=== PATIENT | female | born 1955 | race Caucasian/White ===

== ENCOUNTER 2016-08-31 11:50 | Day surgery (SDC) | payer OTHER ==
[~2016-08-31] VITALS: Ht 157.5 cm; Wt 61.0 kg
--- NOTE | 2016-08-31 07:08 | PCM.HPANE ---
Patient Data Surgeon Admitting Provider: Attending Provider:Eli Rodas MD Primary Care Physician:Sonny Pritchard MD Other Provider:Alvarez Gomez Anesthesia Reason for Visit Noninfective Gastroenteritis Ht/WT & BMI Body Mass Index Allergies Coded Allergies: gabapentin (Verified Allergy, Unknown, 08/31/16) Medications Reported Medications [place]-3 Fatty Acids (Fish Oil)300 Mg Lughzzx162 Mg PO DAILY 08/31/16 Cholecalciferol (Vitamin D3) (Vitamin D3)400 Unit [id number] Unit PO DAILYWD 08/31/16 Quetiapine Fumarate (Seroquel)300 Mg Ikvzux583 Mg PO BID Ref 0 08/31/16 Temazepam 30 Mg Cap30 Mg PO HS PRN For Insomnia 30 Days Ref 0 08/30/16 [place] Carbonate 300 Mg Oihjsr187 Mg PO BID 08/30/16 Discontinued Reported Medications Tramadol 50 Mg Vjyrxf97 Mg PO Q4H PRN For Pain Ref 0 08/30/16 Quetiapine Fumarate (Seroquel)100 Mg Twvgcr417 Mg PO HS Ref 0 01/07/16 Quetiapine Fumarate (Seroquel)100 Mg Bcrpdw383 Mg PO ONCE Ref 0 01/07/16 History Smoking Status: Current Every Day Smoker Stop/Bang RAMON Risk Assessment: Low Risk, <3 Yes Risk Assessment Category Category 1A: Patient has history of documented sleep apnea, and HAS NOT received any narcotic, sedative or anesthesia administration during this stay. Category 1B: Patient has history of documented sleep apnea, and HAS received any narcotic , sedative or anesthesia administration during this stay Category 2: Patient has SUSPECTED Obstructive Sleep Apnea, and HAS received any narcotic , sedative or anesthesia administration during this stay. Category 3: Patient has SUSPECTED Obstructive Sleep Apnea and HAS NOT received narcotic, sedative or anesthesia administration during this stay. Category 4: Outpatient in Procedural Areas with known sleep apnea or who screen positive for High Risk via the STOP/BANG questionnaire. Exam Exam General Appearance: Alert, Oriented X3, Cooperative, No Acute Distress HEENT/AIRWAY: MP 2 Lungs: Clear to Auscultation, Normal Air Movement Heart: Exam Unremarkable, Regular Rate/Rhythm, No Murmurs/Rubs/Gallops Plan Impression Patient chart reviewed, patient interviewed and anesthestic plan with risks, benefits, and alternatives discussed, and informed consent obtained. ASA Physical Status: ASA2 Mod Systemic Disease Anesthetic Plan: MAC Bene/Risks/Altern/Consents: Yes HP Complete Prior to Induction: Yes Aurea Billingsley MD Aug 31, 2016 07:08
[~2016-08-31 11:50] MED LIST: LITH300T2 PO; RES30 PO; TRAM50TA2 PO
[2016-08-31] MEDS ORDERED: Propofol 10,000 mCg/mL 20 mL Inj ONE (11:51)
[2016-08-31] MEDS ORDERED: fentaNYL-PF 50 mCg/mL 2 mL Inj ONE (11:51)
[2016-08-31 12:41] VITALS: BP 125/87; PULSE 87; RESP 16; O2SAT 94
[2016-08-31] MEDS ORDERED: CHOL400T3 PO (12:41)
[2016-08-31] MEDS ORDERED: QUET300T PO (12:41)
[2016-08-31] MEDS ORDERED: OMEG300C3 PO (12:41)
[2016-08-31] MEDS: Lactated Ringer's 1,000 ML IV SCH ×2 (12:48→14:18)
[2016-08-31] MEDS ORDERED: Lactated Ringer's 1,000 ML IV SCH (14:31)
--- NOTE | 2016-08-31 14:32 | PCM.ANEP1 ---
Post Anesthesia Phase 1 PACU Phase 1 Assessment Vital Signs Vital Signs Date Time Temp Pulse Resp B/P Pulse Ox O2 Delivery O2 Flow Rate FiO2 08/31/16 12:41 36.6 87 16 125/87 94 Room Air Anesthetic Administered: MAC Level of Alertness: Awake, talking CHAN's with Equal Strength: Yes Pain: No Oxygen Delivery: Nasal Cannula Lungs: Clear to Auscultation, Normal Air Movement Aurea Billingsley MD Aug 31, 2016 14:32
--- NOTE | 2016-08-31 14:32 | PCM.ANEP2 ---
Post Anesthesia Evaluation ASA/CMS Post Anesthesia VS in Patient's Normal Range?: Yes Resp Stable; Airway Patent?: Yes CV Function & Hydration Stable: Yes Mental Status Recovered?: Yes Pain control Satisfactory?: Yes N/V Control Satisfactory?: Yes Aurea Billingsley MD Aug 31, 2016 14:32
[2016-08-31 14:34] VITALS: BP 137/89; PULSE 74; RESP 16; O2SAT 94
[2016-08-31] MEDS ORDERED: MetoCLOpramide 5 mg/mL 2 mL Inj IVPUSH PRN (14:35)
[2016-08-31] MEDS ORDERED: Ondansetron 2 mg/mL 2 mL Inj IVPUSH PRN (14:35)
[2016-08-31 14:44] VITALS: BP 130/84; PULSE 79; RESP 16; O2SAT 96
[2016-08-31 14:54] VITALS: BP 144/92; PULSE 76; RESP 16; O2SAT 95
--- NOTE | 2016-08-31 15:23 | ENDO ---
[address] [address] ENDOSCOPY PROCEDURE PATIENT: PHIL LY : 1955 MR#: [id number] ADMIT: 08/31/2016 JOB ID: [id number] DATE OF SERVICE: 08/31/2016 FIRST PROCEDURE PERFORMED: Esophagogastroduodenoscopy. INDICATION: Suspected celiac disease and diarrhea. ASA CLASSIFICATION, MALLAMPATI SCORE AND MEDICATIONS: Please see anesthesia report for details regarding ASA classification, Mallampati score and medications. INSTRUMENT USED: [id number]. PROCEDURE DETAILS: After informed consent was obtained, the patient was brought into the GI suite, where she was placed on oxygen via nasal cannula and monitored with continuous pulse oximeter, telemetry, and blood pressure monitoring. A time-out was performed. Then, she was placed in the left lateral decubitus position, and medications were administered for sedation. A bite block was placed. A standard EGD scope was inserted through the bite block and advanced under direct visualization to the second portion of the duodenum without difficulty. FINDINGS: 1. Normal appearing duodenal bulb, first and second portions. Multiple random biopsies were obtained. 2. Normal appearing pylorus. In the antrum there were six clean-based ulcers that measured approximately 2-3 mm each. Multiple biopsies were obtained. The surrounding mucosa was erythematous. 3. Erythema was noted in the gastric body. Multiple random biopsies were obtained. Retroflexed views in the gastric body revealed normal appearing cardia and fundus. 4. The diaphragmatic hiatus was at approximately 40 cm, and the GE junction was at 38 cm. The GE junction appeared normal. 5. Normal appearing esophagus. IMPRESSION: 1. Multiple antral ulcers. 2. Gastritis. 3. Small hiatal hernia. RECOMMENDATIONS: PPI daily and proceed to colonoscopy. COMPLICATIONS: None. ESTIMATED BLOOD LOSS: Less than 5 mL. SECOND PROCEDURE PERFORMED: Colonoscopy. INDICATION: Diarrhea. ASA CLASSIFICATION, MALLAMPATI SCORE AND MEDICATIONS: Please see above for ASA classification, Mallampati score, and medications. INSTRUMENT USED: [id number]. PREPARATION QUALITY: Good. PROCEDURE DETAILS: After completion of the EGD exam, a digital rectal exam was performed which was unremarkable. The colonoscope was then inserted into the rectum and advanced under direct visualization to the cecum, which was identified by the presence of the ileocecal valve and appendiceal orifice. Once the cecum was reached, the terminal ileum was intubated, which was identified by the presence of the ileocecal valve and villous appearing mucosa of the terminal ileum. Once the terminal ileum was intubated, the colonoscope was then withdrawn back into the rectum, as the mucosa and lumen were examined. In the rectum, retroflexion was performed. Following retroflexion, remaining air in the rectum was suctioned, and procedure was completed. FINDINGS: 1. The terminal ileum appeared to be mildly atrophic. Multiple random biopsies were obtained. 2. The entire colon had appearance consistent with neovascularization. Appearance was suggestive of collagenous or lymphocytic colitis. Multiple random biopsies were obtained throughout the entire colon. 3. In the distal rectum, there were two diminutive polyps that were removed with cold biopsy forceps. 4. Scattered diverticula were seen throughout the left side of the colon. IMPRESSION: 1. Atrophic appearing terminal ileum. 2. Neovascularization of the entire colon suggestive of collagenous colitis versus lymphocytic colitis. 3. Two rectal polyps. 4. Left-sided diverticulosis. RECOMMENDATIONS: 1. Await biopsy results. 2. Fiber-rich diet. 3. Follow up in GI clinic. COMPLICATIONS: None. ESTIMATED BLOOD LOSS: Less than 5 mL.
--- NOTE | 2016-09-04 14:06 | PATH ---
SURGICAL PATHOLOGY Attending Physician:Martha Doe CASE STATUS: Signed Out PATIENT NAME: PHIL LY PID: [id number] : 1955 DATE COLLECTED:08/31/2016 00:00 SPECIMEN: 1: Duodenum, Biopsy 2: Stomach, Antrum, Biopsy 3: Gastric, Biopsy 4: Colon, Biopsy 5: Ileum, Biopsy 6: Rectum, Biopsy CLINICAL HISTORY: 1). DUODENAL BIOPSY 2). GASTRIC ANTRUM BIOPSY 3). GASTRIC BODY BIOPSY 4). RANDOM COLON BIOPSY 5). TERMINAL ILEUM BIOPSY 6). RECTAL POLYP X2 FINAL DIAGNOSIS: 1.DUODENUM, BIOPSY: NO DIAGNOSTIC ABNORMALITY. Negative for intraepithelial lymphocytosis, villous blunting, or other features of celiac sprue. Negative for Giardia organisms, dysplasia and malignancy. 2.GASTRIC ANTRUM, BIOPSY: GASTRIC ANTRUM WITH MILD CHRONIC GASTRITIS. Negative for Helicobacter organisms. Negative for intestinal metaplasia. No evidence of dysplasia or malignancy. 3.GASTRIC BODY, BIOPSY: GASTRIC CORPUS WITH MILD CHRONIC GASTRITIS. Negative for Helicobacter organisms. Negative for intestinal metaplasia. No evidence of dysplasia or malignancy. 4.COLON, RANDOM BIOPSIES: COLLAGENOUS COLITIS. No evidence of malignancy or dysplasia. 5.TERMINAL ILEUM, BIOPSY: NORMAL SMALL BOWEL MUCOSA WITH BENIGN LYMPHOID NODULES. No significant inflammation identified. No evidence of malignancy or dysplasia. 6.RECTAL POLYPS: HYPERPLASTIC POLYPS (TWO). COLLAGENOUS COLITIS. ICD10 CODE K52.89 GROSS DESCRIPTION: Received are six formalin-filled containers, each labeled with the patient' s name. 1. Received in formalin, labeled with the patient' s name and "duodenal biopsies", are multiple fragments of mendes, soft tissue ranging in size from 0.1 x 0.1 x 0.1 cm to 0.2 x 0.1 x 0.1 cm. All fragments are totally submitted in cassette 1A. 2. Received in formalin, labeled with the patient' s name and "gastric antrum biopsies", are four fragments of mendes, soft tissue ranging in size from 0.1 x 0.1 x 0.1 cm to 0.2 x 0.2 x 0.2 cm. All fragments are totally submitted in cassette 2A. 3. Received in formalin, labeled with the patient' s name and "gastric body", are four fragments of mendes, soft tissue ranging in size from 0.1 x 0.1 x 0.1 cm to 0.3 x 0.2 x 0.1 cm. All fragments are totally submitted in cassette 3A. 4. Received in formalin, labeled with the patient' s name and "random colon biopsies", are multiple fragments of mendes, soft tissue ranging in size from 0.1 x 0.1 x 0.1 cm to 0.2 x 0.2 x 0.1 cm. All fragments are totally submitted in cassette 4A. 5. Received in formalin, labeled with the patient' s name and "terminal ileum biopsy", is one fragment of mendes, soft tissue measuring 0.3 x 0.2 x 0.1 cm. The fragment is totally submitted in cassette 5A. 6. Received in formalin, labeled with the patient' s name and "rectal polyps", are three fragments of mendes, soft tissue ranging in size from 0.1 x 0.1 x 0.1 cm to 0.2 x 0.2 x 0.1 cm. All fragments are totally submitted in cassette 6A. ([id number]) MICRO DESCRIPTION: See diagnosis. ICD-9 CODES: CPT CODES: 1: 62148 2: 54845 3: 57657 4: 26861 5: 28237 6: 56373 Electronically Signed Out Jacinto Garcia MD [facility] Pathology [facility] [address], [place] [address] Technical component performed at [facility], [place], [facility] [address], [place], [address]
== END 2016-08-31 23:59 | disposition home or self-care (01) ==
LOC: END 11:50
PROVIDERS: ATTEND Internal Medicine Gastroenterology
DX: K29.50 Unspecified chronic gastritis without bleeding (principal); K62.1 Rectal polyp; K57.30 Diverticulosis of large intestine without perforation or abscess without bleeding; K52.831 Collagenous colitis; K44.9 Diaphragmatic hernia without obstruction or gangrene; K25.9 Gastric ulcer, unspecified as acute or chronic, without hemorrhage or perforation; R19.7 Diarrhea, unspecified; F31.9 Bipolar disorder, unspecified; F17.210 Nicotine dependence, cigarettes, uncomplicated
CPT/HCPCS: 43239; 45380; 88305; J2250; J3010; J7120